=== PATIENT | male | born 1980 | race Caucasian/White ===

== ENCOUNTER 2025-02-03 14:45 | Emergency (ER) | payer MEDICAID, SELFPAY ==
--- NOTE | 2025-02-03 15:24 | EDRME_ITS ---
Rapid Medical Screening Exam PENDING SALE TO [facility] Arrival date/time: 02/03/25 14:45 45-year-old male with a history of methamphetamine abuse, schizophrenia presents to the emergency room with a chief complaint of swelling, tenderness, redness to his right hand x 3 days. Patient was seen by his primary care provider and was sent to the emergency room. I have greeted and performed a focused initial assessment of this patient. A comprehensive ED assessment and evaluation of the patient, analysis of all test results, and completion of the medical decision making process will be conducted by additional ED providers. Chief Complaint: Hand/Wrist Problems Time Seen by Provider: 02/03/25 15:06 Vital signs: Vital Signs Temperature 99.0 F 02/03/25 15:30 Pulse Rate 83 02/03/25 15:30 Respiratory Rate 18 02/03/25 15:30 Blood Pressure 115/67 02/03/25 15:30 Pulse Oximetry (%) 96 02/03/25 15:30 Oxygen Delivery Method Room Air 02/03/25 15:30 Vital signs reviewed by provider: Yes
[2025-02-03 15:30] VITALS: BP 115/67; PULSE 83; RESP 18; TEMP 37.2; O2SAT 96
[2025-02-03 15:54] LABS: Basophils # (Auto) 0.1 Thou/mm3 (0.0-0.2); Basophils % (Auto) 0 % (0-2.5); Eosinophils # (Auto) 0.2 Thou/mm3 (0.0-0.5); Eosinophils % (Auto) 2 % (0-10); Hematocrit 31.1 % (41.0-53.0); Hemoglobin 10.3 g/dL (13.5-16.0); Immature Granulocytes Auto 0.03 Thou/mm3 (0.00-0.00); Lymphocytes # (Auto) 1.6 Thou/mm3 (1.0-4.8); Lymphocytes % (Auto) 12 % (10-50); Mean Corpuscular HGB Conc 33.1 g/dl (31.0-37.0); Mean Corpuscular Hemoglobin 28.4 pg (25.0-35.0); Mean Corpuscular Volume 86 fL (80-100); Monocytes # (Auto) 0.9 Thou/mm3 (0.0-0.8); Monocytes % (Auto) 7 % (0-12); Neutrophils # (Auto) 9.9 Thou/mm3 (1.8-7.7); Neutrophils % (Auto) 78 % (37-80); Nucleated Red Blood Cell # 0.00 Thou/mm3 (0.00-0.00); Nucleated Red Blood Cell % 0 /100 WBC (0); Platelet Count 220 Thou/mm3 (140-440); RDW Standard Deviation 46.8 fL (35.1-43.9); Red Blood Count 3.63 Miln/mm3 (4.50-5.90); White Blood Count 12.7 Thou/mm3 (3.8-10.6)
[2025-02-03 16:06] LABS: Alanine Aminotransferase 23 U/L (10-49); Albumin, Serum 3.9 gm/dL (3.5-5.0); Albumin/Globulin Ratio 1.7 (1.2-2.2); Alkaline Phosphatase 66 U/L (46-116); Anion Gap 11 (7-16); Aspartate Amino Transferase 34 U/L (0-34); BUN/Creatinine Ratio 14 Ratio (12-20); Bilirubin,Total 0.2 mg/dL (0.3-1.2); Blood Urea Nitrogen 10 mg/dL (9-23); C-Reactive Protein 2.4 mg/dL (0.0-0.9); Calcium 8.8 mg/dL (8.3-10.6); Calcium (Corrected) 8.9 mg/dL (8.5-10.1); Carbon Dioxide 24.2 mMol/L (20.0-31.0); Chloride 103 mMol/L (98-107); Creatinine (Component) 0.7 mg/dL (0.6-1.3); Globulin 2.3 gm/dL (2.3-3.5); Glucose 91 mg/dL (74-106); Osmolality,Calculated 274 (275-295); Potassium 3.7 mMol/L (3.4-5.1); Sodium 138 mMol/L (136-145); Total Protein 6.2 gm/dL (5.7-8.2); eGFR > 60 See Note
[2025-02-03 17:08] LABS: Sed Rate (ESR) 24 mm/hr (0-15)
[2025-02-03 17:38] VITALS: BP 109/72; PULSE 78; PULSE 81; RESP 16; RESP 17; TEMP 37.1; O2SAT 96; O2SAT 97
[2025-02-03] MEDS: PIPER/TAZO 3.375 GM PREMIX 3.375 GM/50 ML BAG IV (17:46)
[2025-02-03] MEDS: VANCOMYCIN/NS 1 GM IVPB 200 ML IV (17:46)
--- NOTE | 2025-02-03 17:58 | XR_ITS ---
Examination: Hand, right 3 views Technique: Hand AP, oblique, lateral 3 views Date and time of exam: February 03, 2025, 1806 hrs. Indications: Redness and swelling in the hands beginning 3 days ago. Findings: Adequate bone density. Soft tissue swelling dorsum hand. No cortical bone destruction No foreign body Impression: Soft tissue swelling dorsum hand No fracture No cortical bone destruction No opaque foreign body
--- NOTE | 2025-02-03 18:00 | PD.EDHAND ---
Upper Extremity Injury RME/HPI General Chief Complaint: Hand/Wrist Problems Stated Complaint: RIGHT HAND SWELLING/HOT TO TOUCH SINCE YESTERDAY Time Seen by Provider: 02/03/25 15:06 Arrival date/time: 02/03/25 14:45 RME / HPI RME / HPI narrative: 45-year-old male with a history of methamphetamine abuse, schizophrenia presents to the emergency room with a chief complaint of swelling, tenderness, redness to his right hand x 3 days. Involving the dorsal aspect of the right hand, severity of symptoms mild. Patient is able to bend and extend the fingers without any limitation. No fever noted denies any trauma. Patient was seen by his primary care provider and was sent to the emergency room. Related Data Home Medications ?Medication ?Instructions ?Recorded ?Confirmed benztropine 2 mg tablet 1 tab PO BID 10/13/21 01/13/23 fluoxetine 40 mg capsule 80 cap PO DAILY 10/13/21 01/13/23 ziprasidone HCl 20 mg capsule 2 cap PO DAILY 10/13/21 01/13/23 trazodone 150 mg tablet 200 mg HS 10/31/22 01/13/23 Previous Rx's ?Medication ?Instructions ?Recorded ibuprofen 800 mg tablet 800 mg PO TID PRN pain #30 tabs 03/02/23 Allergies Allergy/AdvReac Type Severity Reaction Status Date / Time ondansetron AdvReac Severe VOMITING, Verified 02/03/25 14:48 BODY ACHES, RESTLESSNESS Review of Systems Review of Systems Narrative Review of Systems: Review of system reviewed and within normal limits except mentioned in HPI ED Exam Narrative Physical exam: VITAL SIGNS: Reviewed. GENERAL APPEARANCE: Alert and interactive, follows commands, no acute distress, HEAD AND FACE: Non-traumatic. ENT: PERRL, pink conjunctivitis, eyelid no trauma, Mucous membrane moist. NECK: Supple, nontender, no nuchal rigidity. CHEST: No tenderness, no crepitus, no paradoxical movement, no retractions. LUNGS: Clear, well ventilated, symmetric, no rales, no wheezing, no ronchi, no stridor, good breath sounds bilaterally. HEART: Regular rate, regular rhythm, no murmur, no gallops. ABDOMEN: Soft, positive bowel sounds, nondistended, no guarding, nontender, no rebound, no masses, RECTAL: Deferred. GENITAL: Deferred. NEUROLOGICAL: Gross motor function intact sensory function intact, Appropriate for age. MUSCULOSKELETAL: low back nontender, full range of motion. EXTREMITIES: Swelling and redness noted to the dorsum of the right hand, no no swelling no redness noted on the palmar aspect of the hand, nonfluctuant, no skin breakdown, full range of motion. SKIN: Color pink, dry, no rash, no lacerations, no abrasions, no contusions. LYMPHATICS: Deferred. Course Quality Measures none Orders Category Date Time Status Insert IV STAT Care 02/03/25 15:19 Active XR hand RT 2V Stat Exams 02/03/25 17:58 Completed Blood Culture (Lab) Stat Lab 02/03/25 15:39 Received CBC Stat Lab 02/03/25 15:39 Completed CMP [Comprehensive Metabolic Panel] Stat Lab 02/03/25 15:39 Completed CRP [C-Reactive Protein] Stat Lab 02/03/25 15:39 Completed ESR [Sed Rate (ESR)] Stat Lab 02/03/25 15:39 Completed Ketorolac Inj [Toradol Inj] Med 02/03/25 18:00 Discontinued 30 mg IVP X1 ONE Piper/Tazo 3.375 gm Premix [Zosyn] Med 02/03/25 15:23 Discontinued 3.375 gm in 50 ml IV X1 Vancomycin/Ns 1 gm Ivpb 200 ml Med 02/03/25 15:24 Discontinued IV X1 Vital Signs Vital signs: Vital Signs Temperature 99.0 F 02/03/25 15:30 Pulse Rate 83 02/03/25 15:30 Respiratory Rate 18 02/03/25 15:30 Blood Pressure 115/67 02/03/25 15:30 Pulse Oximetry (%) 96 02/03/25 15:30 Oxygen Delivery Method Room Air 02/03/25 15:30 Extremity Injury MDM Narrative MDM Narrative:: 45-year-old male with a history of methamphetamine abuse, schizophrenia presents to the emergency room with a chief complaint of swelling, tenderness, redness to his right hand x 3 days. Involving the dorsal aspect of the right hand, severity of symptoms mild. Patient is able to bend and extend the fingers without any limitation. No fever noted denies any trauma. Patient was seen by his primary care provider and was sent to the emergency room. CBC showed leukocytosis 12.7. CMP ESR of 24, C-reactive 0.4. X-ray of the hand showed no acute osseous abnormality noted. Patient received IV fluids Toradol IV, Zosyn and Vanco X-ray of the hand came back unremarkable. Except for the dorsal hand swelling. Otherwise no gas noted on the soft tissue, no other abnormality noted Patient data External records reviewed:: None Clinical information provided by:: patient and family Social determinants that could affect healthcare access:: none Patient has the following chronic illnesses:: Methamphetamine abuse, schizophrenia How is presenting disease/condition affected by chronic disease/condition?: no chronic disease Evaluation data The following diagnostics were reviewed and interpreted by me:: lab results and radiology exam(s) Lab and/or radiology exams considered but not ordered:: None Interpretation Summary: See results MDM spoke Medications / Prescriptions Medications or Prescriptions considered but not ordered:: None Medication administrations:: Medication Administration History Discontinued Medications Piperacillin/Tazobactam/Dextrose (Zosyn) 3.375 gm in 50 mls @ 100 mls/hr IV X1 ONE Stop: 02/03/25 15:52 Last Infusion: 02/03/25 18:16 Dose: Infused Documented By: Admin: 02/03/25 17:46 Dose: 100 mls/hr Documented By: EF Vancomycin/Sodium Chloride (Vancomycin/Ns 1 Gm Ivpb) 200 mls @ 120 mls/hr IV X1 ONE Stop: 02/03/25 17:03 Last Infusion: 02/03/25 19:43 Dose: Infused Documented By: Admin: 02/03/25 17:46 Dose: 120 mls/hr Documented By: EF Ketorolac Tromethamine (Ketorolac Inj 30 Mg/Ml Vial) 30 mg IVP X1 ONE Stop: 02/03/25 18:01 Last Admin: 02/03/25 18:46 Dose: 30 mg Documented By: EF Toradol, Zosyn and Vanco Consultations Consultation(s) initiated? (list below): No Diagnosis Upper Extremity Injury Differential Diagnosis: fracture of hand and other (Hand cellulitis, hand swelling) Most likely diagnosis given after review of the tests above:: Dorsal hand cellulitis Admission Indicated Admission indicated?: not indicated Explain why admission is indicated or not indicated:: Stable Admission Request Was there a request for admission?: No Admission Attestation Admission request attestation: Stable Disposition Plan Disposition Plan: Discharge Discharge Attestation Discharge Attestation: The patient and all family members were given an opportunity to ask questions and understood the discharge instructions. Discharge instructions specifically effects, indications for sooner follow up or return to the emergency department, and the expected course of current diagnosis. Patient condition: Stable Discharge Plan Plan Patient Disposition: HOME (Self Care) Discharge Disposition comment: Stable Prescriptions/Referrals Prescriptions/Med Rec: No Action fluoxetine 40 mg capsule 80 cap PO DAILY Patient Comments: TAKE 1 CAPSULE BY MOUTH ONCE DAILY ziprasidone HCl 20 mg capsule 2 cap PO DAILY Patient Comments: TAKE 1 CAPSULE BY MOUTH ONCE DAILY WITH FOOD benztropine 2 mg tablet 1 tab PO BID Patient Comments: TAKE 1 TABLET BY MOUTH TWICE DAILY trazodone 150 mg tablet 200 mg HS Patient Comments: TAKE 1 TABLET BY MOUTH ONCE DAILY AT BEDTIME ibuprofen 800 mg tablet 800 mg PO TID PRN (Reason: pain) Qty: 30 0RF Referrals: No Primary/Family,Physician [Primary Care Provider] - In 1 week Problem List Clinical Impression: Cellulitis of dorsum of hand Patient/Caregiver Discharge Instructions Discharge Activity: activity as tolerated Education Materials: ED Cellulitis Additional Instructions: Thank you for the opportunity for serving you today. You are stable for discharged . You are advised to: Follow-up with your PCP in 1 to 2 days Return to ED for worsening of symptoms Increase oral fluids Take medication as prescribed by your PCP today your antibiotic Print Language: Frisian Stand Alone Forms: Supriya Award Info., Patient Portal Info Letter PRINCESS/INGRIS Supervising Physician PRINCESS/INGRIS Supervising Physician: MD Juan R
[2025-02-03] MEDS: KETOROLAC INJ 30 MG/ML VIAL IVP (18:46)
[2025-02-03 19:36] VITALS: BP 102/73; PULSE 77; RESP 18; TEMP 37.7; O2SAT 96
[2025-02-03 21:37] VITALS: BP 111/87; PULSE 86; RESP 16; TEMP 36.9; O2SAT 98
== END 2025-02-03 21:39 | disposition home or self-care (01) ==
PROVIDERS: Nurse Practitioner Family; Emergency Provider Emergency Medicine
DX: L03.115 Cellulitis of right lower limb (principal); F15.10 Other stimulant abuse, uncomplicated; F20.9 Schizophrenia, unspecified; Z79.899 Other long term (current) drug therapy
CPT/HCPCS: 36415; 73120; 80053; 85025; 85652; 86140; 87040; 96365; 96366; 96375; 99283; J1885; J2543; J3373

== ENCOUNTER 2025-04-11 12:10 | Emergency (ER) | payer MEDICAID, SELFPAY ==
[2025-04-11 12:19] VITALS: BP 146/76; PULSE 93; RESP 18; TEMP 36.8; O2SAT 97; BMI 23.6
--- NOTE | 2025-04-11 12:20 | EDNOTE_ITS ---
<Statement entered by Arleth Luo MD - 04/11/25 16:24> As co-signing physician, I was present and available for consult prn. I concur with the plan and care as documented by the midlevel provider. ED General RME/HPI General Chief complaint: General Adult/Misc Complain Stated complaint: generalized body pain, sores on feet Time Seen by Provider: 04/11/25 12:20 Arrival date/time: 04/11/25 12:10 45-year-old male presents to the Emergency Department today for plaint of generalized body pain patient reports sores on bilateral feet patient reports has been walking a lot. Patient reports he is not homeless but was recently released from skilled nursing and is living at his mother's Limitations: no limitations Related Data Home Medications ?Medication ?Instructions ?Recorded ?Confirmed benztropine 2 mg tablet 1 tab PO BID 10/13/21 fluoxetine 40 mg capsule 80 cap PO DAILY 10/13/21 ziprasidone HCl 20 mg capsule 2 cap PO DAILY 10/13/21 01/13/23 trazodone 150 mg tablet 200 mg HS 10/31/22 01/13/23 Previous Rx's ?Medication ?Instructions ?Recorded ibuprofen 800 mg tablet 800 mg PO TID PRN pain #30 t abs 03/02/23 cephalexin 500 mg capsule 500 mg PO BID 7 days #14 cap s 04/11/25 ibuprofen 600 mg tablet 600 mg PO Q6H #30 tabs 04/11 Allergies Allergy/AdvReac Type Severity Reaction Status Date / Time ondansetron AdvReac Severe VOMITING, Verified 04/11/25 12:13 BODY ACHES, RESTLESSNESS Review of Systems Review of Systems Systems Reviewed: All systems reviewed, normal except as documented Constitutional Constitutional: Reports system reviewed and no additional complaints, except as documented, Denies fatigue, Denies fever(s) and Denies headache(s) Eyes Eyes: Reports system reviewed and no additional complaints, except as documented ENT Ears, Nose, Mouth, and Throat: Reports system reviewed and no additional complaints, except as documented, Denies dizziness and Denies headache(s) Cardiovascular Cardiovascular: Reports system reviewed and no additional complaints, except as documented, Denies chest pain, Denies dyspnea and Denies dyspnea on exertion Respiratory Respiratory: Reports system reviewed and no additional complaints, except as documented, Denies chest congestion, Denies cough, Denies dyspnea and Denies dyspnea on exertion Gastrointestinal Gastrointestinal: Reports system reviewed and no additional complaints, except as documented, Denies abdominal pain, Denies nausea and Denies vomiting Musculoskeletal Musculoskeletal: Reports system reviewed and no additional complaints, except as documented, Denies abnormal gait, Denies numbness, Denies stiffness and Denies tingling Integumentary/Breasts Skin/Breast: Reports system reviewed and no additional complaints, except as documented, Denies rash and Denies wounds Neurologic Neurologic: Reports system reviewed and no additional complaints, except as documented, Denies abnormal gait, Denies dizziness, Denies headache(s), Denies numbness and Denies tingling Psychiatric Psychiatric: Reports system reviewed and no additional complaints, except as documented and Denies anxiety Endocrine Endocrine: Denies fatigue Past Medical History Past Medical History NEUROLOGIC: Negative Seizures CARDIAC: Negative Congestive Heart Failure RESPIRATORY: Negative Chronic Obstructive Pulmonary Disease (COPD) GENITOURINARY: Negative Renal Disease ENDOCRINE: Negative Diabetes Mellitus Type 1 or Diabetes Mellitus Type 2 PSYCHO/SOCIAL: Positive Schizophrenia, Bipolar Disorder and Depression OTHER HISTORY: Negative Blood Transfusions, Blood Transfusion Reaction or Anesthesia Reactions Family History FAMILY HISTORY: Negative Family Neurologic Problems, Family Psychiatric Problems, Family Respiratory Disorders, Family Cardiac Disorders, Family Gastrointestinal Problems, Family Cancer, Family Surgery or Family Anesthesia Reaction Surgical History SURGICAL: Positive Abdominal Surgery Social History SMOKING STATUS: Current every day smoker SECOND HAND EXPOSURE: Yes SUBSTANCE USE: former substance user and methamphetamine ED Exam General Limitations: Present no limitations General appearance: Present alert and in no apparent distress Head Head exam: Present atraumatic, normocephalic and normal inspection Eye Eye exam: Present normal appearance, PERRL and EOMI ENT ENT exam: Present normal exam, normal oropharynx and mucous membranes moist Neck Neck exam: Present normal inspection, full ROM and trachea midline Chest Chest inspection: Present normal inspection and symmetric chest wall rise Respiratory Respiratory exam: Present normal lung sounds bilaterally Cardiovascular Cardiovascular exam: Present regular rate, normal rhythm and normal heart sounds Abdominal Exam Abdominal exam: Present soft and normal bowel sounds Extremities Exam Extremities exam: Present full ROM, tenderness and normal capillary refill Back Exam Back exam: Present normal inspection and full ROM Neurological Exam Neurological exam: Present alert, oriented X3 and CN II-XII intact Psychiatric Psychiatric exam: Present normal affect and normal mood Skin Skin exam: Present warm, dry, intact and normal color Course Quality Measures none Vital Signs Vital signs: Vital Signs Temperature 98.2 F 04/11/25 12:19 Pulse Rate 93 04/11/25 12:19 Respiratory Rate 18 04/11/25 12:19 Blood Pressure 146/76 H 04/11/25 12:19 Pulse Oximetry (%) 97 04/11/25 12:19 Oxygen Delivery Method Room Air 04/11/25 12:19 O2 saturation 97% room air with normal limits Discharge Plan Plan Patient Disposition: HOME (Self Care) Discharge Disposition comment: Stable Prescriptions/Referrals Prescriptions/Med Rec: New cephalexin 500 mg capsule 500 mg PO BID 7 Days Qty: 14 0RF ibuprofen 600 mg tablet 600 mg PO Q6H Qty: 30 0RF No Action fluoxetine 40 mg capsule 80 cap PO DAILY Patient Comments: TAKE 1 CAPSULE BY MOUTH ONCE DAILY ziprasidone HCl 20 mg capsule 2 cap PO DAILY Patient Comments: TAKE 1 CAPSULE BY MOUTH ONCE DAILY WITH FOOD benztropine 2 mg tablet 1 tab PO BID Patient Comments: TAKE 1 TABLET BY MOUTH TWICE DAILY trazodone 150 mg tablet 200 mg HS Patient Comments: TAKE 1 TABLET BY MOUTH ONCE DAILY AT BEDTIME ibuprofen 800 mg tablet 800 mg PO TID PRN (Reason: pain) Qty: 30 0RF Problem List Clinical Impression: Bilateral foot pain Patient/Caregiver Discharge Instructions Education Materials: ED RICE Additional Instructions: Please follow up with your primary care doctor in the next 24-48hrs for any worsening symptoms return here immediately Print Language: Egyptian Stand Alone Forms: Supriya Award Info., Patient Portal Info Letter PA/DISTRIBUTOR OF DIRECTORIES Supervising Physician PA/DISTRIBUTOR OF DIRECTORIES Supervising Physician: Dr. luo MDM Narrative MDM hospital course (for use when minimal MDM required): 45-year-old male presents to the Emergency Department today for plaint of generalized body pain patient reports sores on bilateral feet patient reports has been walking a lot. Patient reports he is not homeless but was recently released from skilled nursing and is living at his mother's On exam patient appears to be a bit disheveled but is [employer] 15 Patient's feet are dirty but no wounds noted Patient discharged home in no distress to follow-up with primary care doctor in the next 24 to 48 hours and for any worsening symptoms to return to the ER immediately Clinical Information Provided by: patient Medical Records reviewed [facility] Meds/Rx considered, not ordered None Labs/Rad/Tests considered, not ordered None Chronic Illness/Social Conditions which may negatively complicate care or outcome(s)-explain: None or not applicable EKG EKG not done Labs Labs: none Imaging Imaging interpretation: none Medication Administration(s) Rx given Diagnosis Differential Diagnosis ED Complaint MDM: Cellulitis, abrasion, foot pain
== END 2025-04-11 13:25 | disposition home or self-care (01) ==
LOC: SERX 12:42
PROVIDERS: Emergency Provider Nurse Practitioner Primary Care; PCP Family Medicine
DX: M79.671 Pain in right foot (principal); M79.672 Pain in left foot
CPT/HCPCS: 99281